=== PATIENT | female | born 1965 | race Caucasian/White ===

== ENCOUNTER 2020-03-18 10:32 | Emergency (ER) | payer OTHER ==
[~2020-03-18] VITALS: Ht 162.6 cm; Wt 52.2 kg
[2020-03-18 10:45] VITALS: BP 142/73
[2020-03-18] MEDS ORDERED: HYDROcodone/APAP 5/325MG 1 TAB TABLET PO ONE (11:00)
--- NOTE | 2020-03-18 11:34 | RAD ---
PROCEDURE: HAND LEFT 2V, FOREARM LEFT, WRIST 3V LEFT STUDY DATE: 03/18/2020 CLINICAL INDICATION / HISTORY: Reason: dog bite / Spl. Instructions: / History: . TECHNIQUE: PA, lateral and oblique views of the left hand. COMPARISON: Left wrist x-rays same day. FINDINGS: No fracture or dislocation is identified. The bone density is normal. The joint spaces are maintained, and there are no erosions to suggest an inflammatory arthropathy. The soft tissues of the hand are unremarkable. IMPRESSION: No acute osseous abnormality. PROCEDURE: HAND LEFT 2V, FOREARM LEFT, WRIST 3V LEFT STUDY DATE: 03/18/2020 CLINICAL INDICATION / HISTORY: Reason: dog bite / Spl. Instructions: / History: . TECHNIQUE: Left wrist 4 views. AP, lateral, oblique and scaphoid views. COMPARISON: None FINDINGS: The radiocarpal and intracarpal relationships are maintained. There is no fracture or dislocation. The bone density is normal. Some gas in the soft tissues is present on the dorsal aspect of the left wrist extending laterally to the snuffbox. No retained radiopaque foreign body.. IMPRESSION: Left wrist laceration without embedded radiopaque foreign body or acute osseous injury shown by x-ray. PROCEDURE: HAND LEFT 2V, FOREARM LEFT, WRIST 3V LEFT STUDY DATE: 03/18/2020 CLINICAL INDICATION / HISTORY: Reason: dog bite / Spl. Instructions: / History: . TECHNIQUE: Left forearm 2 views. AP and lateral views. COMPARISON: Left wrist x-rays same day FINDINGS: No fracture or dislocation is identified. The bone density appears normal. The wrist and elbow joints are approximated. No soft tissue abnormality in the left forearm is seen. IMPRESSION: Normal left forearm.. Electronically signed by: Mary Gasca MD (03/18/2020 11:31 AM) [id number]
--- NOTE | 2020-03-18 11:43 | PHYS DOC ---
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 Is right-hand dominant. Cannot recall if her tetanus is up-to-date. Has no pain to the left shoulder, left elbow or left wrist. No prior injury to this extremity. Not on any blood thinners. Takes no routine medications. No history of steroid use or immunocompromised state. ROS: Denies associated fever, chills, cough, sore throat, nausea, vomiting, diarrhea, chest pain, dyspnea, headache, neck stiffness, rash, sensory or motor deficits, joint swelling or decreased range of motion. Current Medications: Current Medications Medications (Trade) Dose Ordered Sig/Terrie Start Time Stop Time Status Last Admin Dose Admin Acetaminophen/ Hydrocodone Bitart (Lortab 5/325) 1 tab 1X ONCE 03/18/20 11:00 03/18/20 11:13 DC 03/18/20 11:21 1 TAB Allergies: Allergies: Allergies Coded Allergies Type Severity Reaction Last Updated Verified No Known Drug Allergies 03/18/20 No Physical Exam: PE: Constitutional: Well developed, well nourished, HENT: Normocephalic, atraumatic, Eyes: EOMI, conjunctiva normal, Neck: Normal range of motion, supple, Cardiovascular:Heart rate regular rhythm, no murmur [] Lungs & Thorax: Bilateral breath sounds clear to auscultation [] Abdomen: soft, no tenderness, Skin: Warm, dry, no erythema, no rash. [] Back: No tenderness, Extremities: No tenderness, no cyanosis, no clubbing, ROM intact, distal dorsal radial aspect laceration approximately 1 cm with minimal/no active bleeding, 1.5 cm laceration to ventral aspect of lateral distal forearm with 3 nearby puncture wounds, no tenderness to palpation over left wrist/elbow/shoulder joint pain is localized to the laceration sites, no bone tenderness Neurologic: Alert and oriented X 3, normal motor function, normal sensory function, no focal deficits noted. [] Psychologic: Affect normal, judgement normal, mood normal. [] Current Patient Data: Vital Signs: Vital Signs Date Time Temp Pulse Resp B/P (MAP) Pulse Ox O2 Delivery O2 Flow Rate FiO2 03/18/20 11:21 20 98 Room Air 03/18/20 10:45 98.6 98 142/73 (96) 98.6 EKG: EKG: [] Radiology/Procedures: Radiology/Procedures: IMAGING REPORT Signed PATIENT: KOFI MAGALLON ACCOUNT: [id number] : 1965 LOCATION: ER AGE: 54 SEX: F EXAM STATUS: REG ER ORD. PHYSICIAN: CAROLYNE BARRERA DO REASON: dog bite PROCEDURE: FOREARM LEFT PROCEDURE: HAND LEFT 2V, FOREARM LEFT, WRIST 3V LEFT STUDY DATE: 03/18/2020 CLINICAL INDICATION / HISTORY: Reason: dog bite / Spl. Instructions: / History: . TECHNIQUE: PA, lateral and oblique views of the left hand. COMPARISON: Left wrist x-rays same day. FINDINGS: No fracture or dislocation is identified. The bone density is normal. The joint spaces are maintained, and there are no erosions to suggest an inflammatory arthropathy. The soft tissues of the hand are unremarkable. IMPRESSION: No acute osseous abnormality. PROCEDURE: HAND LEFT 2V, FOREARM LEFT, WRIST 3V LEFT STUDY DATE: 03/18/2020 CLINICAL INDICATION / HISTORY: Reason: dog bite / Spl. Instructions: / History: . TECHNIQUE: Left wrist 4 views. AP, lateral, oblique and scaphoid views. COMPARISON: None FINDINGS: The radiocarpal and intracarpal relationships are maintained. There is no fracture or dislocation. The bone density is normal. Some gas in the soft tissues is present on the dorsal aspect of the left wrist extending laterally to the snuffbox. No retained radiopaque foreign body.. IMPRESSION: Left wrist laceration without embedded radiopaque foreign body or acute osseous injury shown by x-ray. PROCEDURE: HAND LEFT 2V, FOREARM LEFT, WRIST 3V LEFT STUDY DATE: 03/18/2020 CLINICAL INDICATION / HISTORY: Reason: dog bite / Spl. Instructions: / History: . TECHNIQUE: Left forearm 2 views. AP and lateral views. COMPARISON: Left wrist x-rays same day FINDINGS: No fracture or dislocation is identified. The bone density appears normal. The wrist and elbow joints are approximated. No soft tissue abnormality in the left forearm is seen. IMPRESSION: Normal left forearm.. Electronically signed by: Herrera Gasca MD (03/18/2020 11:31 AM) [id number] DICTATED and SIGNED BY: HERRERA GASCA MD DATE: 03/18/20 1131 Course & Med Decision Making: Course & Med Decision Making Pertinent Labs and Imaging studies reviewed. (See chart for details) Pt was biten by Usman Jordan ([phone] owners-Anabel and Srinivas) -confirmed rabies vaccination with [facility] ([phone]). Dog recieved 3 years rabies vaccination in 2017 and this was updated January 07 of this year with a 1 year rabies vaccination. Tetanus updated in ED. Dog bite lacerations are very small, recommend delayed, secondary closure. Patient will be prescribed antibiotic ointment and Augmentin with wound care instructions given, wound care follow-up in 48 hours. Encouraged urgent outpatient follow-up with PMD and Ortho/hand surgery. Life-threatening processes were considered but are low suspicion at this time, given history and physical exam. Pt was educated on all prescription medications and adverse effects. All patient's questions were answered and pt was stable at time of discharge. Differential includes fracture, dislocation, laceration, osteomyelitis, compartment syndrome, neurovascular injury or deficit, infection (abscess, cellulitis, septic arthritis), tendon or ligament injury. I spoken with the patient and her caregivers. I explained the patient's condition, diagnoses and treatment plan based on the information available to me at this time. I have answered the patient and her caregiver's questions and addressed any concerns. The patient and her caregivers have a good understanding of patient's diagnosis, condition and treatment plan as can be expected at this point. Vital signs have been stable. Patient's condition is stable and appropriate for discharge from the emergency department. Patient will pursue further outpatient evaluation with primary care physician or other designated or consulting physician as outlined in the discharge instructions. The patient and/or caregivers are agreeable to this plan of care and follow-up instructions have been explained in detail. The patient and/or caregivers have received these instructions in written form and have expressed an understanding of the discharge instructions. The patient and/or caregivers are aware that any significant change of condition or worsening of symptoms should prompt immediate return to this or the closest emergency department or call to 911. Shelia Disclaimer: Dr[place] Disclaimer: This electronic medical record was generated, in whole or in part, using a voice recognition dictation system. Departure Departure Impression: Primary Impression: Dog bite Disposition: 01 HOME, SELF-CARE Condition: STABLE Referrals: NO PCP (PCP) Patient Instructions: Animal Bite, Delayed Wound Closure Additional Instructions: [facility] [address], [place], [address] GPS Address: [address] [place] [address] Appointments may be made with Marlon Medina MD, Marvin Osborne MD, Walker Mueller MD or Ynes Avalos MD, by calling [phone]. Scripts Neomy Sulf/Bacitrac Zn/Poly (Triple Antibiotic Ointment) 1 Each Oint.pack 1 EACH TP BID for 7 Days, #1 MISC Prov: CAROLYNE BARRERA DO 03/18/20 Amoxicillin/Potassium Clav (AUGMENTIN 875-125 TABLET) 1 Each Tablet 1 TAB PO Q12HR, #20 TAB Prov: CAROLYNE BARRERA DO 03/18/20 Justicifation of Admission Dx: Justifications for Admission: Justification of Admission Dx: N/A CAROLYNE BARRERA DO Mar 18, 2020 11:43
[2020-03-18] MEDS ORDERED: DIPH,PERTUSS(ACELL),TET VAC/PF 0.5 ML SYRINGE. VAX IM ONE (12:00)
[2020-03-18] MEDS ORDERED: NEOM1OIN6 TP (12:13)
[2020-03-18] MEDS ORDERED: AMOX1TAB61 PO (12:13)
[2020-03-18] MEDS ORDERED: BACITRACIN TOPICAL OINT PACKET. TP ONE (12:37)
[2020-03-18] MEDS ORDERED: NEOMY/BACITR/POLYMYXIN OINT PACKET. TP ONE (12:45)
== END 2020-03-18 12:52 | disposition home or self-care (01) ==
LOC: ER 10:32
DX: S51.812A Laceration without foreign body of left forearm, initial encounter (principal); S61.512A Laceration without foreign body of left wrist, initial encounter; S61.452A Open bite of left hand, initial encounter; W54.0XXA Bitten by dog, initial encounter; Y93.89 Activity, other specified; Y92.89 Other specified places as the place of occurrence of the external cause; Y99.8 Other external cause status
CPT/HCPCS: 73090; 73110; 73120; 90471; 90715; 99284